=== PATIENT | male | born 1970 | race Caucasian/White ===

== ENCOUNTER 2019-07-31 14:02 | Emergency (ER) | payer OTHER ==
[~2019-07-31] VITALS: Ht 175.3 cm; Wt 70.8 kg
--- NOTE | 2019-07-31 14:11 | NUR ---
Patient BREN[employer] and [employer], homeless, picked up on the street, +si/-hi, per ems he was banging his head on the wall, holding a glass to cut his wrist. On room air, breathing evenly and unlabored. connected to the monitor and pulse ox. Kept comfortable, will continue to monitor accordingly.
--- NOTE | 2019-07-31 14:14 | NUR ---
Sitter at bedside for constant monitoring.
--- NOTE | 2019-07-31 14:15 | NUR ---
SECURITY AT BEDSIDE.
[2019-07-31 14:38] LABS: BASOPHILS % (AUTO) 0.3 % (0.0-2.0); EOSINOPHILS % (AUTO) 2.3 % (0.0-6.0); HEMATOCRIT 49 % (39-51); HEMOGLOBIN 16.5 g/dL (13.5-17.5); LYMPHOCYTES # (AUTO) 0.8 /CMM (0.8-4.8); MEAN CORPUSCULAR HGB CONC 34 g/dl (31.0-36.0); MEAN CORPUSCULAR VOLUME 91 fL (80-96); MONOCYTES # (AUTO) 0.8 /CMM (0.1-1.30); MONOCYTES % (AUTO) 8.8 % (2.0-12.0); NEUTROPHILS # (AUTO) 7.7 /CMM (1.8-8.9); NEUTROPHILS % (AUTO) 80.6 % (43.0-81.0); PLATELET COUNT (AUTO) 286 /CMM (150-450); RED BLOOD CELL COUNT(AUTO) 5.41 MIL/uL (4.5-6.0); WHITE BLOOD COUNT (AUTO) 9.5 K/uL (4.3-11.0)
[2019-07-31 14:54] LABS: ACETAMINOPHEN 0 ug/ml (10-30); ALANINE AMINOTRANSFERASE 85 U/L (12-78); ALBUMIN 3.9 g/dL (3.4-5.0); ALCOHOL, BLOOD < 3 mg/dL (0-0); ALKALINE PHOSPHATASE 77 U/L (46-116); ASPARTATE AMINOTRANSFERASE 78 U/L (15-37); BILIRUBIN,DIRECT 0.2 mg/dL (0.0-0.2); BILIRUBIN,TOTAL 1.1 mg/dL (0.2-1.0); CALCIUM, SERUM 9.3 mg/dL (8.5-10.1); CARBON DIOXIDE 30 mmol/L (21-32); CHLORIDE 102 mmol/L (98-107); CREATININE 0.9 mg/dL (0.6-1.3); GLUCOSE 97 mg/dL (74-106); POTASSIUM 3.9 mmol/L (3.5-5.1); SALICYLATE < 0.2 mg/dL (2.8-20.0); SODIUM SERUM 139 mmol/L (136-145); TOTAL PROTEIN, SERUM 7.9 g/dL (6.4-8.2); UREA NITROGEN, BLOOD 19 mg/dL (7-18)
--- NOTE | 2019-07-31 14:55 | NUR ---
MD examined the patient and per okay to take out patient restraint. Sitter at bedside for constant monitoring. Called kitchen for food.
[2019-07-31] MEDS ORDERED: ZIPRASIDONE MESYLATE 20 MG/VIAL VIAL IM ONE ×4 (15:00→20:30)
--- NOTE | 2019-07-31 15:09 | NUR ---
Urine collected and sent to lab.
[2019-07-31 15:48] LABS: APPEARANCE,URINE Clear (CLEAR); BILIRUBIN,URINE Negative (NEGATIVE); BLOOD, URINE Negative Ery/uL (NEGATIVE); COLOR,URINE Yellow (YELLOW); KETONES,URINE Negative (NEGATIVE); LEUKOCYTE ESTERASE ,URINE Negative (NEGATIVE); NITRITE, URINE Negative (NEGATIVE); PH,URINE 5.5 (5.0-8.0); PROTEIN,URINE Negative (NEGATIVE); UGLUCOSE Negative (NEGATIVE); UROBILINOGEN,URINE 0.2 EU/dL (0.2)
--- NOTE | 2019-07-31 17:15 | NUR ---
paged social security assessor
--- NOTE | 2019-07-31 17:42 | NUR ---
Received call from [facility] asphalt raker, ETA is [phone].
[2019-07-31] MEDS ORDERED: WATER FOR INJECTION,STERILE 10 ML ONE (20:05)
[2019-07-31] MEDS ORDERED: LORAZEPAM 1 MG TABLET ONE (20:05)
[2019-07-31] MEDS ORDERED: LORAZEPAM 1 MG TABLET PO ONE (20:30)
--- NOTE | 2019-07-31 20:35 | NUR ---
packet faxed to reyes shrestha
[2019-08-01] MEDS ORDERED: ACETAMINOPHEN 325 MG TABLET ONE (02:29)
[2019-08-01] MEDS ORDERED: ACETAMINOPHEN 325 MG TABLET PO ONE (02:30)
--- NOTE | 2019-08-01 07:41 | NUR ---
ordered breakfast tray
--- NOTE | 2019-08-01 07:45 | NUR ---
pt sitting up at end of bed with sitter. asking for breakfast. updated pt on POC. Addendum: 08/01/19 at 07 by [employer] sitter at bedside
--- NOTE | 2019-08-01 07:54 | NUR ---
BREAKFAST TRAY PROVIDED TO PATIENT. PATIENT TOLERATING PO WELL.
[2019-08-01] MEDS ORDERED: LORAZEPAM 1 MG TABLET ONE ×2 (08:40→17:27)
[2019-08-01] MEDS ORDERED: LORAZEPAM INJ 2 MG/ML VIAL IV ONE (09:00)
[2019-08-01] MEDS ORDERED: LORAZEPAM 1 MG TABLET PO ONE ×4 (09:00→19:30)
--- NOTE | 2019-08-01 09:30 | NUR ---
followed up with [facility] re: bed availability. no beds available yet, they will call back when they have one.
--- NOTE | 2019-08-01 12:35 | NUR ---
LUNCH TRAY PROVIDED. PATIENT TOLERATING PO WELL.
--- NOTE | 2019-08-01 13:41 | NUR ---
RESTING QUIETLY, NAD NOTED. ALL NEEDS ATTENDED TO. UPDATED ON POC. PER IRMA AT [facility], PT IS ACCEPTED TO [facility] BUT NO BED INFORMATION GIVEN
[2019-08-01 13:45] VITALS: BP 115/69
--- NOTE | 2019-08-01 16:17 | NUR ---
called call the car, per Jean-Claude Gutiérrez ETA is [phone], ticket # [id number]
--- NOTE | 2019-08-01 17:25 | NUR ---
PT REQUESTING ATIVAN AGAIN. PT REPORTS HE USUALLY TAKES 2MG PO BID, RECEIVED ONLY 1MG THIS MORNING. RECEIVED VERBAL ORDER FROM DR SERRA FOR 2MG ATIVAN PO.
--- NOTE | 2019-08-01 18:41 | NUR ---
RESTING QUIETLY, AWAITING TRANSPORT
--- NOTE | 2019-08-01 18:46 | NUR ---
updated ETA ambulife is 19:20
--- NOTE | 2019-08-01 19:38 | NUR ---
updated ETA 20:00
--- NOTE | 2019-08-01 20:10 | NUR ---
report given to auto radio mechanic from [facility]
== END 2019-08-01 20:16 ==
LOC: ER 14:03
DX: F32.9 Major depressive disorder, single episode, unspecified (principal); R45.851 Suicidal ideations; T50.905A Adverse effect of unspecified drugs, medicaments and biological substances, initial encounter; M25.562 Pain in left knee; F41.9 Anxiety disorder, unspecified; Z88.8 Allergy status to other drugs, medicaments and biological substances; Y92.89 Other specified places as the place of occurrence of the external cause
CPT/HCPCS: 36415; 73564; 80048; 80076; 80305; 80307; 80329; 81001; 85025; 96372 ×2; 99285; G0480; J3486 ×2; 81000-TC